=== PATIENT | male | born 1980 | race Caucasian/White ===

== ENCOUNTER 2025-02-15 10:41 | Emergency (ER) | payer MEDICARE, MEDICAID, SELFPAY ==
[2025-02-15 10:48] VITALS: BP 171/114; PULSE 83; RESP 16; TEMP 36.6; O2SAT 98
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
[2025-02-15] MEDS: CEPHALEXIN 500 MG CAPSULE PO (11:32)
[2025-02-15 11:54] VITALS: BP 136/88; PULSE 82; RESP 16; TEMP 36.6; O2SAT 98
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
--- OUTSIDE RECORDS SUMMARY | 2025-02-15 16:20 | XMS_ITS ---
Author Name Auto Generated, Auto Generated Organization [facility] Address [address] [place] [address] Phone [phone] Functional Status No Results Mental Status No Results Allergies and Intolerances No Known Allergies Problems Active Concerns * Moderate recurrent major depression* Code: [id number] * Start Date: MonApr 25 08:00:00 EDT 2016 * End Date: * Text: * FOREST (generalized anxiety disorder)* Code: [id number] * Start Date: MonApr 25 08:00:00 EDT 2016 * End Date: * Text: * Insomnia* Code: [id number] * Start Date: MonApr 25 08:00:00 EDT 2016 * End Date: * Text: * Cannabis abuse* Code: [id number] * Start Date: MonApr 25 08:00:00 EDT 2016 * End Date: * Text: * Nicotine dependence* Code: [id number] * Start Date: MonApr 25 08:00:00 EDT 2017 * End Date: * Text: Reason for Referral Past Medical History
--- OUTSIDE RECORDS SUMMARY | 2025-02-15 16:20 | XMS_ITS | Data Portability ---
Author Organization [facility] [place], Main Office Address [address] [place] [address] Care Team Providers Care Cutting And Boning Supervisor Name Role Phone HANNAH SHIN Primary Care Provider HANNAH SHIN Referring Provider [phone] CAROLYNE CHAKRABORTY Supervisor [employer] SIIS LOPEZ Electronic System Engineer SEKOU KEITH Dog Warden Assessment Encounter Date Assessment Date Assessment LastModified by Organization Details LastModified Time 09/17/2024 09/17/2024 12/06/2022: AST 71 MCV 100.4 VIT D 24.3L 01/04/2023: Hepatitis panel: Neg 04/28/2023: TSH/FT4/Lipids/C MP/CBC: WNL 10/27/2023: VIT D 27.8 TG 200 MCV 100.00 Not available 09/17/2024 14:38:42 10/29/2024 10/29/2024 This note is dictated and transcribed by [employer]. Vat Tender variances may occur. Despite proofreading, typographical errors may occur. Occasional wrong-word or 'vuuho-u-wktg' substitutions may have occurred due to the inherent limitations of voice recording. Read the chart carefully and recognize, using context, where substitutions have occurred. Not available 10/30/2024 11:20:41 11/12/2024 11/12/2024 This note is dictated and transcribed by [employer]. Vat Tender variances may occur. Despite proofreading, typographical errors may occur. Occasional wrong-word or 'qgvoa-y-loji' substitutions may have occurred due to the inherent limitations of voice recording. Read the chart carefully and recognize, using context, where substitutions have occurred. Not available 11/12/2024 15:15:38 12/24/2024 12/24/2024 12/06/2022: AST 71 MCV 100.4 VIT D 24.3L 01/04/2023: Hepatitis panel: Neg 04/28/2023: TSH/FT4/Lipids/C MP/CBC: WNL 10/27/2023: VIT D 27.8 TG 200 MCV 100.00 10/11/2024: K 5.7 VIT D 19.2 Not available 12/24/2024 14:30:33 01/07/2025 01/07/2025 This note is dictated and transcribed by [employer]. Vat Tender variances may occur. Despite proofreading, typographical errors may occur. Occasional wrong-word or 'nsoms-l-jyjk' substitutions may have occurred due to the inherent limitations of voice recording. Read the chart carefully and recognize, using context, where substitutions have occurred. Not available 01/07/2025 15:32:19 Plan of Treatment Reminders Order Date Submit Date Provider Last Modified By Organization Details Last Modified Time Details Appointments Any 15 2024 01:45P M Hannah verde MD Not available Not available Not available Establish ed Patient 15 2024 02:00P M Sekou Keith DPM Not available Not available Not available Follow Up 2024 01:00P Francisco Lopez MD Not available Not available Not available Lab vitamin D, 25-hydrox y, total, serum [email or web address] (Lab), [address] [place], [address], 12/24/2024 14:42:19 lipid panel, serum 2024 025 [email or web address] [facility] (Lab), [address] [place], [address], 12/24/2024 14:42:20 CBC w/ auto diff [address] (Lab), [address] [place], [address], 12/24/2024 14:42:20 CMP, serum or plasma [address] (Lab), [address] [place], [address], 12/24/2024 14:42:20 TSH, serum or plasma [address] (Lab), [address] [place], [address], 12/24/2024 14:42:21 lipid panel, serum 2023 024 [facility] (Lab), [address] [place], [address], 10/12/2024 11:05:16 CBC w/ auto diff 2023 024 [facility] (Lab), [address] [place], [address], 10/12/2024 11:05:16 CMP, serum or plasma 2023 024 [facility] (Lab), [address] [place], [address], 10/12/2024 11:05:16 TSH, serum or plasma 2023 024 [facility] (Lab), [address] [place], [address], 10/12/2024 11:07:56 vitamin D, 25-hydrox y, total, serum 2023 024 [facility] (Lab), [address] [place], [address], 10/12/2024 11:05:16 Referral orthopedi c surgeon referral - Please call patient to schedule an appointme nt. Thank you. 2024 025 [email or web address] aJcob Villa MD, [address] [facility], [place], [address], 12/24/2024 15:49:04 cardiolog ist referral - Please call patient to schedule an appointme nt. Thank you. 2024 025 [email or web address] [place], [address], [address], [place], [address], 01/21/2025 08:54:44 general surgeon referral - Please call patient to schedule an appointme nt. Thank you. 2024 025 YVON Ojeda MD, [address] [facility], [address], [place], [address], 12/25/2024 16:21:38 podiatris t referral 2023 024 [email or web address] Sekou CHAKRABORTYM, [address] [facility], [address], [place], [address], 09/17/2024 20:26:19 orthopedi c surgeon referral - Please call patient to schedule. 2023 024 [email or web address] Jacob Villa MD, [address] [facility], [place], [address], 01/09/2025 08:13:31 cardiolog ist referral 2023 024 [place], [address] , [address], [place], [address], 09/17/2024 20:26:19 general surgeon referral - Please call patient to schedule. 2023 024 [email or web address] Stoney Ojeda MD, [address] [facility], [address], [place], [address], 01/09/2025 08:13:31 Procedures colonosco py screening (PROC) - Please call patient to schedule an appointme nt. Thank you. 2024 025 [facility], [address], [id number], [place], [address], 12/24/2024 16:19:26 colonosco py screening (PROC) - Please call patient to schedule. [address] [facility], [address], [id number], [place], [address], 12/19/2024 09:46:12 Surgeries None recorded. Imaging None recorded. Medication Orders None recorded. Patient TargetsNo targets recorded. Patient InstructionsNo instructions recorded. Reason for Referral Supervisor Metal Cans Referral for He art murmur Referring Physician: Hannah Shin Internal Medicine, Encounter Date: 09/17/2024 Dog Warden Referral for Righ t foot drop Referring Physician: Hannah Shin Internal Medicine, Encounter Date: 09/17/2024 Orthopedic Surgeon Referral for Pain of left hip joint Please call patient to schedule. Referring Physician: Nahomy Galloway Medicine, Encounter Date: 09/17/2024 General Surgeon Referral for Skin lesion Please call patient to schedule. Referring Physician: Hannah Shin Internal Medicine, Encounter Date: 09/17/2024 Supervisor Metal Cans Referral for He art murmur Please call patient to schedule an appointment. Thank you. Referring Physician: Nahomy Galloway Medicine, Encounter Date: 12/24/2024 Orthopedic Surgeon Referral for Pain of left hip joint Please call patient to schedule an appointment. Thank you. Referring Physician: Nahomy Galloway Medicine, Encounter Date: 12/24/2024 General Surgeon Referral for Skin lesion Please call patient to schedule an appointment. Thank you. Referring Physician: Hannah Shin, Internal Medicine, Encounter Date: 12/24/2024 Problems Name Problem SNOMED Code Status Onset Date Resolution Date Notes Provider Name and Address Organization Details Recorded Time Acquired unequal limb length 0699693137889 00 Active 2018 Not Available [facility] 4 02:00:01 Vitamin D deficiency 81392958 Active 2021 Not Available [facility] 4 02:00:01 Depressive disorder 89707020 Active Not Available [facility] 4 02:00:01 Hypothyroi dism 18297770 Active 2021 Not Available [facility] 4 02:00:01 Closed fracture of base of fifth metatarsal bone 740100037 Active 2021 Not Available [facility] 4 02:00:01 Tinea pedis 7461817 Active 2020 Not Available [facility] 4 02:00:01 Right foot drop 9530173828556 06 Active 2022 Not Available [facility] 4 02:00:01 Smoker 15588200 Active 2022 Not Available [facility] 4 02:00:01 Hammer toe 332143041 Active 2022 Not Available [facility] 4 02:00:01 Deviated nasal septum 192386414 Active 2023 Not Available [facility] 4 02:00:01 Liver enzymes level above reference range 976747201 Active 2023 Not Available [facility] 4 02:00:01 Hypertrigl yceridemia 579891577 Active 2023 Not Available [facility] 4 02:00:01 Macrocytos is 152350635 Active 2023 Not Available [facility] 4 02:00:01 Mild chronic obstructiv e pulmonary disease 035672245 Active 2023 Sisi Lopez MD [address] [place] [address], [facility] [address], [place], [address] , [facility] 4 13:11:58 Hyperlipid emia 52970856 Active 2023 Hannah duran MD [address], [address], [place], [address] , [facility] 4 18:28:27 Chronic pain 50792557 Active 2023 Hannah duran MD [address], [place], [address] , [facility] 4 18:28:27 Dyspnea on exertion 93702138 Active 2023 Hannah duran MD [address], [place], [address] , [facility] 4 18:28:27 Laceration of left foot 5634892371149 9106 Active 2023 Hannah duran MD [address], [place], [address] , [facility] 4 18:28:27 Pain of left hip joint 5038249585781 00 Active 2023 Hannah duran MD [address], [place], [address] , [facility] 4 18:28:27 Heart murmur 42343617 Active 2023 Hannah duran MD [address], [place], [address] , [facility] 4 18:28:27 Skin lesion 89406016 Active 2023 Hannah duran MD [address], [place], [address] , [facility] 4 18:28:27 Foot callus 672819761 Active 2023 Sekou Keith DPM [address], [address], [place], [address] , [facility] [employer] [facility] [employer] [facility] 4 15:35:22 History of amputation of lesser toe 183137367 Active 2023 Sekou Keith DPM [address], [place], [address] , [facility] [employer] [facility] [employer] [facility] 4 15:35:47 History of amputation of hallux 889391948 Active 2023 Sekou Keith DPM [address], [place], [address] , [employer] [employer] [facility] 4 15:35:48 Subluxatio n of toe joint 579856721 Active 2023 Sekou Keith DPM [address], [address], [place], [address] , [facility] [employer] [facility] 4 15:36:19 Hammer toe 465249607 Active 2023 Sekou Keith DPM [address], [place], [address] , [facility] [employer] [facility] 4 15:36:29 Dystrophia unguium 16654124 Active 2023 Sekou Keith DPM [address], [place], [address] , [facility] [employer] [facility] 4 15:37:02 Eruption 597949896 Active 2023 Hannah duran MD [address], [place], [address] , [facility] [employer] [facility] 4 15:20:39 Hammer toe 458004632 Active 2024 Sekou Keith DPM [address], [place], [address] , [facility] [employer] [facility] [employer] [facility] 5 11:21:33 Ulcer of right foot due to type 2 diabetes mellitus 6898835285469 9102 Active 2024 Sekou Keith DPM [address], [place], [address] , [facility] 5 11:26:51 Pain of toe of left foot 7350533153635 08 Active 2024 Sekou Keith DPM [address], [place], [address] , [facility] 5 15:15:02 Leg length inequality 80075524 Active 2024 Sekou Keith DPM [address], [place], [address] , [facility] 5 15:15:45 Hyperkalem ia 18876579 Active 2024 Hannah duran MD [address], [place], [address] , [facility] 14:41:10 Notes:Medical History: Depre ssion IgE 6 IU/mL Eosinophils 180/uL AAT PiMS 154 mg% Nicotine use Mild COPD Obesity Hypothyroidism Hyperlipidemia Hypertension EF 60% Cholelithiasis Vit D deficiency Right fibular/tibial fractures Right foot drop/neuropathy Tinea pedis Procedure History: 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 Procedures Surgical History Date Name Laterality Status Provider Name and Address Organization Details Recorded Time 01/08/20 25 Nail Debridement completed Sekou Keith DPM [address], [place], [address], [facility] 01/07/2025 15:31:27 01/08/20 25 Callus Debridement, One completed Sekou Keith DPM [address], [place], [address], [employer] 01/07/2025 15:30:58 11/12/19 25 Nail Debridement completed Sekou Keith DPM [address], [place], [address], [facility] [employer] [facility] 11/12/2024 16:15:59 11/12/19 25 Callus Debridement, One completed Sekou Keith DPM [address], [place], [address], [facility] [employer] [facility] [facility] 11/12/2024 15:14:22 10/29/19 25 Nail Debridement completed Sekou Keith DPM [address], [place], [address], [facility] [employer] [facility] [employer] [facility] 10/30/2024 11:22:53 10/29/19 25 Wound Care-Podiatry completed Sekou Keith DPM [address], [place], [address], [facility] [employer] [facility] [employer] 10/30/2024 11:24:58 06/25/20 24 Nail Debridement completed Sekou Keith DPM [address], [place], [address], [facility] [employer] [facility] [employer] 06/25/2024 15:34:31 02/27/20 24 Medicare Wellness CPT Code, subsequent completed Billy Woods LPN [place] [employer] [facility] [employer] 02/27/2024 17:46:22 02/14/20 24 Wound Care-Podiatry completed Marlys Umanzor RN [facility] [employer] [facility] [employer] 02/14/2024 12:13:01 01/31/20 24 Wound Care-Podiatry completed Sekou Keith DPM [address], [place], [address], [facility] [employer] [facility] [employer] 01/31/2024 17:01:17 01/10/20 24 Wound Care-Podiatry completed Sekou Keith DPM [address], [place], [address], [facility] [employer] [facility] [facility] 01/10/2024 12:15:44 12/27/19 24 Wound Care-Podiatry completed Sekou Keith DPM [address], [place], [address], [employer] [facility] [employer] 12/28/2023 13:56:09 12/13/19 24 Wound Care-Podiatry completed Sekou Keith DPM [address], [place], [address], [employer] [facility] [employer] 12/13/2023 14:39:03 11/29/19 24 Wound Care-Podiatry completed Sekou Keith DPM [address], [place], [address], [employer] [facility] [employer] 11/29/2023 13:30:25 11/15/19 24 Wound Care-Podiatry completed Sekou Keith DPM [address], [place], [address], [employer] [facility] [employer] 11/15/2023 13:38:04 11/01/19 24 Wound Care-Podiatry completed Sekou Keith DPM [address], [place], [address], [employer] [facility] [employer] 11/01/2023 13:59:08 07/25/20 23 Callus Debridement 2-4 completed Sekou Keith DPM [address], [place], [address], [employer] [facility] [employer] 07/26/2023 13:54:48 03/02/20 23 Callus Debridement 2-4 completed Sekou Keith DPM [address], [place], [address], [employer] [facility] [employer] 03/02/2023 17:00:49 02/17/20 23 Wound Care-Podiatry completed Sekou Keith DPM [address], [place], [address], [employer] [facility] [employer] 02/16/2023 16:55:56 02/17/20 23 Callus Debridement 2-4 completed Sekou Keith DPM [address], [place], [address], [employer] [facility] [employer] 02/16/2023 16:54:24 04/15/20 22 procedure on lip completed Not Available [facility] 12/14/2022 02:44:04 Imaging Results None recorded. Procedure Notes None recorded. Medical Equipment None Reported. Allergies Allergen ID Allergen Name Allergen Category Reaction Reaction Severity Criticality Documentation Date Start Date Code Code System Note Provider Name and Address Organization Details Recorded Time 4893 clindamyc in Not available Not available Not available Not available 12/14/2022 2582 RxNorm Not Available [facility] 3 03:04:12 4894 Cipro medicatio n Not available Not available Not available 12/14/2022 38598 3 RxNorm Not Available [facility] 3 03:04:12 Medications Name Sig Start Date Stop Date Status Note LastModified by Organization Details LastModified Time losartan 50 mg tablet TAKE 1 TABLET BY MOUTH EVERY DAY 09/17 completed Not Available Not Available Not Available cyclobenz aprine 10 mg tablet Take 1 tablet every day by oral route as needed for 30 days. active Not Available Not Available No t Available amoxicill in 500 mg capsule TAKE 1 CAPSULE BY MOUTH TWICE DAILY BEFORE MEALS 12/07 completed Not Available Not Available Not Available atorvasta tin 40 mg tablet TAKE 1 TABLET BY MOUTH EVERY DAY active Not Available Not Available No t Available ammonium lactate 12 % lotion apply to feet daily active Not Available Not Available No t Available azithromy alex 250 mg tablet TAKE 2 TABLETS (500 MG) BY ORAL ROUTE ONCE DAILY FOR 1 DAY THEN 1 TABLET (250 MG) BY ORAL ROUTE ONCE DAILY FOR 4 DAYS 10/24 completed Not Available Not Available Not Available nicotine (polacril ex) 2 mg gum Chew 1 piece of gum 4 times a day by oral route for 30 days. active Not Available Not Available No t Available metoprolo l succinate ER 50 mg tablet,ex tended release 24 hr TAKE 1 TABLET BY MOUTH DAILY active Not Available Not Available No t Available cephalexi n 250 mg capsule TAKE 1 CAPSULE BY MOUTH FOUR TIMES DAILY FOR 7 DAYS 04/19 completed Not Available Not Available Not Available hydrocodo ne 5 mg-acetam inophen 325 mg tablet TAKE 1 TABLET BY MOUTH EVERY 8 HOURS NEEDED FOR PAIN 12/07 completed Not Available Not Available Not Available ceftriaxo ne 250 mg solution for injection Take 250 mg by injectio n route. 07/18 completed Not Available Not Available Not Available thiamine HCl (vitamin B1) 100 mg tablet Take 1 tablet every day by oral route for 90 days. 05/01 completed Not Available Not Available Not Available aspirin 81 mg tablet,de layed release Take 1 tablet every day by oral route. 06/04 completed Not Available Not Available Not Available tramadol 50 mg tablet TAKE 1 TABLET BY MOUTH EVERY 8 HOURS NEEDED 12/13 completed Not Available Not Available Not Available amoxicill in 500 mg tablet TAKE 1 TABLET BY MOUTH EVERY 8 HOURS UNTIL ALL GONE 09/17 completed Not Available Not Available Not Available meloxicam 7.5 mg tablet Take 1 tablet twice a day by oral route as needed. active Not Available Not Available No t Available terbinafi ne HCl 250 mg tablet TK 1 T PO D FOR 2 WEEKS active Not Available Not Available No t Available hydrocodo ne 7.5 mg-acetam inophen 325 mg tablet TAKE 1 TABLET BY MOUTH EVERY 4 HOURS NEEDED FOR PAIN 02/03 completed Not Available Not Available Not Available econazole nitrate 1 % topical cream APPLY TO AFFECTED AREAS OF HANDS AND FEET BID FOR 4 WEEKS active Not Available Not Available No t Available cephalexi n 500 mg capsule Take 1 capsule every 6 hours by oral route as directed for 7 days. 01/09 completed Not Available Not Available Not Available triamcino lone acetonide 0.1 % topical ointment APPLY A THIN LAYER TO THE AFFECTED AREA(S) BY TOPICAL ROUTE 2 TIMES PER DAY active Not Available Not Available No t Available losartan 25 mg tablet TAKE 1 TABLET BY MOUTH EVERY DAY active Not Available Not Available No t Available diclofena c sodium 75 mg tablet,de layed release TAKE 1 TABLET BY MOUTH TWICE DAILY 06/04 completed Not Available Not Available Not Available folic acid 1 mg tablet Take 1 tablet every day by oral route for 90 days. 05/01 completed Not Available Not Available Not Available mupirocin 2 % topical ointment apply to foot wound daily active Not Available Not Available No t Available metoprolo l succinate ER 25 mg tablet,ex tended release 24 hr TAKE 1 TABLET BY MOUTH EVERY DAY 02/26 completed Not Available Not Available Not Available ergocalci ferol (vitamin D2) 1,250 mcg (50,000 unit) capsule TAKE 1 CAPSULE BY MOUTH WEEKLY 04/24 completed Not Available Not Available Not Available albuterol sulfate HFA 90 mcg/actua tion aerosol inhaler Inhale 1 puff every 4 hours by inhalati on route as needed. 06/04 completed Not Available Not Available Not Available ketoconaz ole 2 % topical cream apply to the bottom of feet daily in the morning active Not Available Not Available No t Available doxycycli ne hyclate 100 mg tablet TAKE 1 TABLET BY MOUTH TWICE DAILY 06/10 completed Not Available Not Available Not Available naproxen 500 mg tablet TAKE 1 TABLET BY MOUTH TWICE DAILY WITH FOOD 07/26 completed Not Available Not Available Not Available amoxicill in 875 mg-potass ium clavulana te 125 mg tablet Take 1 tablet every 12 hours by oral route for 7 days. 02/27 completed Not Available Not Available Not Available azithromy alex 1 gram oral packet Take 1 packet by oral route for 1 day. active Not Available Not Available No t Available nicotine 21mg/24hr -14mg/24h r-7mg/24h r daily transderm patches,s equentl Use the patches as directed by the pharmacy 06/03 completed Not Available Not Available Not Available rosuvasta tin 40 mg tablet TAKE 1 TABLET BY MOUTH EVERY DAY active Not Available Not Available No t Available acetamino phen (bulk) PT stated he takes 1800mg PRN 07/26 completed Only really takes if the cycloben zaprine doesn't help Not Available Not Available Not Available icosapent ethyl 1 gram capsule Take 2 capsules twice a day by oral route for 30 days. 11/01 completed Not Available Not Available Not Available Vitals Date Recorded Body height Body mass index (BMI) Body weight Body temperature Heart rate Oxygen saturation Oxygen saturation in Arterial blood by Pulse oximetry Pain severity - 0-10 verbal numeric rating [Score] - Reported Systolic blood pressure Diastolic blood pressure Provider Name and Address Organization Details Last Updated DateTime 4 170.18 cm 32.6 kg/m2 95883.2 1 g 97.5 [degF] 62 /min 97 % 97 % 2 132 mm[Hg] 82 mm[Hg] Haylie Paul [place] [facility] 4 14:34:20 Date Recorded Body height Body mass index (BMI) Body weight Heart rate Respiratory rate Oxygen saturation Oxygen saturation in Arterial blood by Pulse oximetry Systolic blood pressure Diastolic blood pressure Provider Name and Address Organization Details Last Updated DateTime 5 170.18 cm 32.6 kg/m2 57816.2 1 g 73 /min 14 /min 99 % 99 % 169 mm[Hg] 108 mm[Hg] Dolores Vega [facility] [employer] [facility] 5 15:00:35 Date Recorded Body height Body mass index (BMI) Body weight Heart rate Respiratory rate Oxygen saturation Oxygen saturation in Arterial blood by Pulse oximetry Systolic blood pressure Diastolic blood pressure Provider Name and Address Organization Details Last Updated DateTime 5 170.18 cm 32.6 kg/m2 22527.2 1 g 71 /min 14 /min 99 % 99 % 137 mm[Hg] 81 mm[Hg] Dolores Vega [facility] [employer] [facility] 5 14:51:32 Date Recorded Body height Body mass index (BMI) Body weight Body temperature Heart rate Systolic blood pressure Diastolic blood pressure Provider Name and Address Organization Details Last Updated DateTime 5 170.18 cm 31.8 kg/m2 74498.2 5 g 97.6 [degF] 72 /min 122 mm[Hg] 80 mm[Hg] GREGOR Myrick [facility] [facility] 5 14:16:55 Date Recorded Body height Respiratory rate Body temperature Oxygen saturation Oxygen saturation in Arterial blood by Pulse oximetry Heart rate Body mass index (BMI) Body weight Systolic blood pressure Diastolic blood pressure Provider Name and Address Organization Details Last Updated DateTime 5 170.18 cm 16 /min 98.6 [degF] 97 % 97 % 86 /min 31.8 kg/m2 44837.2 5 g 108 mm[Hg] 69 mm[Hg] Briana Grimes [facility] 5 15:04:33 Social History Question Answer Notes LastModified by Organization Details LastModified Time Tobacco Smoking Status Current Every Day Smoker Not Available [facility] 12/14/2022 02:31:05 Do You Have An Advance Directive? No MIGRATION.0301 [id number] Information not available 12/14/2022 What Is Your Level Of Alcohol Consumption? Occasional MIGRATION.0301 123317 Information not available 12/14/2022 Do You Wear A Helmet When Biking? No MIGRATION.0301 998737 Information not available 12/14/2022 What Is Your Level Of Caffeine Consumption? Heavy MIGRATION.0301 404092 Information not available 12/14/2022 In The 14 Days Before Symptom Onset, Have You Had Close Contact With A Laboratory-confi rmed COVID-19 While That Case Was Ill? No MIGRATION.0301 871585 Information not available 12/14/2022 In The 14 Days Before Symptom Onset, Have You Had Close Contact With A Person Who Is Under Investigation For COVID-19 While That Person Was Ill? No MIGRATION.0301 405675 Information not available 12/14/2022 Are You Currently Employed? No Disabled [email or web address] Information not available 02/27/2024 What Type Of Diet Are You Following? REGULAR MIGRATION.030 409459 Information not available 12/14/2022 Which Illicit Or Recreational Drugs Have You Used? Recreational Marijuana MIGRATION.030 841174 Information not available 12/14/2022 Do You Or Have You Ever Used E-cigarettes Or Vape? Never Used Electronic Cigarettes MIGRATION.030 584314 Information not available 12/14/2022 What Is The Highest Grade Or Level Of School You Have Completed Or The Highest Degree You Have Received? QR81302-5 MIGRATION.030 299363 Information not available 12/14/2022 Do You Have An Electrostatic Air Filter? No Information not available 05/03/2023 Have There Been Any Changes To Your Family Or Social Situation? No MIGRATION.0301 656433 Information not available 12/14/2022 What Is The Fluoride Status Of Your Home? Unknown MIGRATION.0301 054638 Information not available 12/14/2022 Do You Have A Humidifier? No Information not available 05/03/2023 Do You Use Insect Repellent Routinely? No MIGRATION.0301 929719 Information not available 12/14/2022 Where Do You Live? SingleLevelHouse MIGRATION.0301 928724 Information not available 12/14/2022 Presence Of Domestic Violence No [email or web address] Information not available 02/27/2024 Are You Able To Care For Yourself? Yes [email or web address] Information not available 02/27/2024 Are You Blind Or Do Yo Have Difficulty Seeing? No [email or web address] Information not available 02/27/2024 Are You Deaf Or Do You Have Serious Difficulty Hearing? No [email or web address] Information not available 02/27/2024 General Stress Level? Low [email or web address] Information not available 02/27/2024 Live Alone Of With Others? With Others Information not available 02/27/2024 Do You Have A Medical Power Of Environmental Professional? No MIGRATION.0301 598964 Information not available 12/14/2022 Do You Have Moisture Problems In Your Home? No Information not available 05/03/2023 What Was The Date Of Your Most Recent Tobacco Screening? 12/24/2024 Information not available 12/24/2024 What Is Your Current Pack Years? [email or web address] Information not available 02/27/2024 Have You Ever Been Counseled For Unhealthy Alcohol Use? No MIGRATION.0301 519099 Information not available 12/14/2022 Do You Have Any Pets? Yes Big Dog [email or web address] Information not available 02/27/2024 What Is Your Relationship Status? MIGRATION.0301 790323 Information not available 12/14/2022 Do You Use Your Seat Belt Or Car Seat Routinely? Yes MIGRATION.0301 926521 Information not available 12/14/2022 Do You Have Smoke And Carbon Monoxide Detectors In Your Home? Yes MIGRATION.0301 445528 Information not available 12/14/2022 At What Age Did You Start Smoking Tobacco? 11 MIGRATION.0301 113466 Information not available 12/14/2022 Are You Passively Exposed To Smoke? Yes MIGRATION.0301 946648 Information not available 12/14/2022 Do You Or Have You Ever Used Smokeless Tobacco? Never Used Smokeless Tobacco MIGRATION.0301 650840 Information not available 12/14/2022 Are There Any Smokers In Your House? Yes MIGRATION.0301 984289 Information not available 12/14/2022 How Much Tobacco Do You Smoke? 1 PPD Information not available 02/27/2024 What Types Of Sporting Activities Do You Participate In? None MIGRATION.0301 906018 Information not available 12/14/2022 Do You Feel Stressed (tense, Restless, Nervous, Or Anxious, Or Unable To Sleep At Night)? [id number] Information not available 02/27/2024 Do You Use Any Illicit Or Recreational Drugs? Yes MIGRATION.0301 127448 Information not available 12/14/2022 Do You Use Sunscreen Routinely? No MIGRATION.0301 038843 Information not available 12/14/2022 Has Tobacco Cessation Counseling Been Provided? Yes Information not available 02/27/2024 On What Date Was Tobacco Cessation Counseling Provided? 02/27/2024 [email or web address] Information not available 02/27/2024 Have You Recently Traveled Abroad? No MIGRATION.0301 779495 Information not available 12/14/2022 Have You Used IV Drugs? No MIGRATION.0301 373441 Information not available 12/14/2022 Do You Have Any Dietary Restrictions? No MIGRATION.0301 430536 Information not available 12/14/2022 Do You Or Have You Ever Used Any Other Forms Of Tobacco Or Nicotine? No MIGRATION.0301 566592 Information not available 12/14/2022 How Many Days In The Past Year Have You Consumed 5 Or More Drinks? 0 [email or web address] Information not available 02/27/2024 Sex: Male Functional Status Question Answer Note LastModified by Organizat ion Details LastModified Time What is your exercise level? Occasional MIGRATION.[id number] 26 Information not available 12/14/2022 Mental Status None recorded. Family History Relationship Description Onset Age of this Age Resolved Age Notes LastModified by Organization Details LastModified Time Mother Hypertensive disorder MIGRATION.178 [id number] Not available 12/14/2022 02:44:08 Mother Diabetes mellitus MIGRATION.368 [id number] Not available 12/14/2022 02:44:08 Maternal Grandfather Heart disease [email or web address] Not available 2022 14:22:17 Maternal Grandfather Obesity [email or web address] Not available 2022 14:22:36 Maternal Aunt Obesity [email or web address] Not avail able 05/03/2023 14:22:57 Mother Obesity [email or web address] Not available 14:23:03 Medical History Condition Response NERVE DISEASE N BLINDNESS N RHEUMATIC FEVER N KIDNEY STONES N BLADDER PROBLEMS N MRSA N OTHER # 1 N POLIO N LUNG DISEASE/DISORDER N RADIATION / CHEMOTHERAPY N COPD N Other # 2 N BLOOD DISEASES N SURGERY N EAR OR HEARING PROBLEMS N MUMPS N DEPRESSION (INCLUDING POST ) Y BOWEL PROBLEMS N STROKE/TIA N ULCERS N BENIGN PROSTATIC HYPERPLASIA N MEASLES N MYOCARDIAL INFARCTION N OBESITY N GERD/NAUSEA N ANEURYSM N URINARY/BLADDER/KIDNEY PROBLEMS N CORONARY ARTERY DISEASE (CAD) N ADDICTION CONCERNS N Impotence N ENDOMETRIOSIS N USE OF BLOOD THINNERS N SKIN PROBLEMS Y GASTROINTESTINAL DISORDER N PERIPHERAL VASCULAR DISEASE N MUSCLE,JOINT OR BONE PROBLEMS N GASTROINTESTINAL BLEEDING N BLOOD CLOTS N ASTHMA N CATARACTS N ERECTILE DYSFUNCTION N VARICOSITIES N GI PROBLEMS N Low Testosterone N INFERTILITY N AIDS/HIV N CHEMOTHERAPY / RADIATION N LIVER DISEASE N MALE HYPOGONADISM N HYPERTENSION Y Deficiency N ANXIETY DISORDER Y BLOOD TRANSFUSION N ANEMIA/BLOOD DISORDER N CHRONIC EAR INFECTIONS N BRONCHITIS N TUBERCULOSIS N GLAUCOMA N FOOT PROBLEM N DIVERTICULITIS N SLEEP APNEA N CHICKENPOX N INFECTIOUS DISEASE N PROSTATE N HEART ARRHYTHMIA N INSOMNIA N HIGH CHOLESTEROL / HYPERLIPIDEMIA Y HYPERTHYROIDISM N EYE PROBLEMS N NEUROLOGICAL PROBLEMS Y EDEMA N CHRONIC PAIN SYNDROME Y HYPOTHYROIDISM N CONSTIPATION N CAROTID BLOCKAGE N BACK / NECK PROBLEMS N ATHEROSCLEROSIS N BREAST PROBLEMS N DIALYSIS N ECZEMA N HISTORY WITH COMPLICATIONS WITH ANESTHES IA ? N OSTEOPOROSIS N ARTHRITIS N APPENDICITIS N DIABETES, TYPE N BAD TEETH N ENT Y HEARTBURN / REFLUX N AUTISM SPECTRUM DISORDER (ASD) N HEPATITIS / LIVER DISEASE N GOUT N SLEEP DISORDER N ALZHEIMER'S DISEASE N Brain Problems N HERPES N DEMENTIA N SEIZURES/EPILEPSY N HEADACHES/MIGRAINES N VASCULAR DISEASE N PACEMAKER N Blood Disorder N DIZZINESS N HEAD TRAUMA OR INJURY N KIDNEY DISEASE N HEART DISEASE/HEART PROBLEMS N MULTIPLE SCLEROSIS N CARDIAC ARRHYTHMIA N CANCER: SPECIFY Y Gall Stones N ATRIAL FIBRILLATION N PULMONARY EMBOLISM N AUTOIMMUNE DISEASE N Immunizations Vaccine Type Date Status Note Provider Nam e and Address Organization Details Recorded Time Td (adult), 5 Lf tetanus toxoid, preservative free, adsorbed 4 completed GREGOR Myrick, [place] - [facility] 10/24/2023 15:36:56 Past Encounters Encounter ID Performer Location Encounter Start Date Encounter Closed Date Diagnosis/Indication Diagnosis SNOMED-CT Code Diagnosis ICD10 Code Diagnosis Note [id number] [facility] _ATHENA_M IGRATION_ DEFAULT_1 _1 , 12/25/2020 00:00:00 12/29/2020 08:48:53 [id number] [facility] [address] [place] [address] 12/29/2020 00:00:00 12/29/2020 16:04:52 [id number] [facility] [address] [place] [address] 01/05/2021 00:00:00 01/07/2021 13:24:14 [id number] [facility] [address] [place] [address] 01/07/2021 00:00:00 01/11/2021 15:54:54 [id number] [facility] [address] [place] [address] 01/12/2021 00:00:00 01/13/2021 10:10:52 [id number] [facility] [address] [place] [address] 01/19/2021 00:00:00 01/22/2021 09:52:31 [id number] [facility] [address] [place] [address] 01/26/2021 00:00:00 01/27/2021 13:27:40 [id number] [facility] [address] [place] [address] 02/02/2021 00:00:00 02/03/2021 11:14:06 [id number] [facility] [address] [place] [address] 02/09/2021 00:00:00 02/11/2021 09:08:28 [id number] [facility] [address] [place] [address] 02/16/2021 00:00:00 02/16/2021 14:29:46 [id number] [facility] [address] [place] [address] 02/19/2021 00:00:00 02/19/2021 14:26:30 [id number] [facility] [address] [place] [address] 03/01/2021 00:00:00 03/08/2021 08:57:51 [id number] [facility] [address] [place] [address] 03/09/2021 00:00:00 03/10/2021 11:12:18 [id number] [facility] [address] [place] [address] 03/16/2021 00:00:00 03/16/2021 12:03:11 [id number] [facility] [address] [place] [address] 03/23/2021 00:00:00 03/23/2021 15:41:12 [id number] [facility] [address] [place] [address] 04/27/2021 00:00:00 04/27/2021 14:09:28 [id number] [facility] [address] [place] [address] 05/04/2021 00:00:00 05/10/2021 08:54:36 [id number] [facility] [address] [place] [address] 05/11/2021 00:00:00 05/13/2021 10:44:26 [id number] [facility] [address] [place] [address] 05/18/2021 00:00:00 05/20/2021 11:25:41 [id number] [facility] [address] [place] [address] 05/25/2021 00:00:00 05/31/2021 09:08:00 [id number] [facility] [address] [place] [address] 06/01/2021 00:00:00 06/02/2021 13:30:38 [id number] Hannah duran MD [facility] [address] [facility] [address] [place] [address] 06/10/2021 00:00:00 06/14/2021 13:12:22 [id number] [facility] [address] [place] [address] 07/06/2021 00:00:00 07/06/2021 17:48:08 [id number] [facility] [address] [place] [address] 07/13/2021 00:00:00 07/14/2021 16:21:26 [id number] [facility] _ATHENA_M IGRATION_ DEFAULT_1 _1 , 08/13/2021 00:00:00 08/13/2021 13:59:33 [id number] [facility] _ATHENA_M IGRATION_ DEFAULT_1 _1 , 08/20/2021 00:00:00 08/24/2021 13:21:16 [id number] [facility] _ATHENA_M IGRATION_ DEFAULT_1 _1 , 09/17/2021 00:00:00 09/21/2021 13:19:51 [id number] [facility] [address] [place] [address] 11/02/2021 00:00:00 11/02/2021 15:24:56 [id number] [facility] _ATHENA_M IGRATION_ DEFAULT_1 _1 , 11/12/2021 00:00:00 11/14/2021 20:46:50 [id number] Cb Hall MD [facility] ENT [facility] [address] [place] [address] 12/07/2021 00:00:00 12/07/2021 16:14:58 [id number] [facility] _ATHENA_M IGRATION_ DEFAULT_1 _1 , 12/10/2021 00:00:00 12/12/2021 15:35:26 [id number] Hannah duran MD [facility] Med [facility] [address] [facility] [address] [address] 12/14/2021 00:00:00 12/14/2021 17:34:58 [id number] [facility] _ATHENA_M IGRATION_ DEFAULT_1 _1 , 12/24/2021 00:00:00 12/27/2021 10:51:58 [id number] [facility] _ATHENA_M IGRATION_ DEFAULT_1 _1 , 01/07/2022 00:00:00 01/09/2022 15:48:20 [id number] MD LINO AnglinCAMELIA HERNANDEZ [place] [address] [place] [address] 02/03/2022 00:00:00 02/03/2022 14:09:28 [id number] [facility] _ATHENA_M IGRATION_ DEFAULT_1 _1 , 02/04/2022 00:00:00 02/07/2022 10:11:50 [id number] [facility] _ATHENA_M IGRATION_ DEFAULT_1 _1 , 03/04/2022 00:00:00 03/07/2022 10:19:15 [id number] Hannah duran MD [facility] Internal Med [facility] [address] [facility] [address] [place] [address] 03/24/2022 00:00:00 03/24/2022 16:08:37 [id number] [facility] _ATHENA_M IGRATION_ DEFAULT_1 _1 , 04/08/2022 00:00:00 04/12/2022 13:39:23 [id number] MD DONIS AnglinKaren ENT [place] [address] [place] [address] 04/13/2022 00:00:00 04/13/2022 16:06:11 [id number] [facility] _ATHENA_M IGRATION_ DEFAULT_1 _1 , 05/13/2022 00:00:00 05/13/2022 13:38:51 [id number] [facility] _ATHENA_M IGRATION_ DEFAULT_1 _1 , 07/08/2022 00:00:00 07/11/2022 13:08:48 [id number] Hannah duran MD [facility] Internal Med [facility] [address] [facility] [place] [address] 07/26/2022 00:00:00 07/26/2022 15:52:38 [id number] [facility] _ATHENA_M IGRATION_ DEFAULT_1 _1 , 09/16/2022 00:00:00 09/20/2022 10:16:28 [id number] Sekou Keith DPM [facility] [place] [address] [place] [address] 11/17/2022 00:00:00 11/23/2022 09:48:23 [id number] Hannah duran MD [facility] Internal Med [facility] [address] [place] [address] 1 12/13/2022 00:00:00 12/13/2022 16:17:44 [id number] Sekou Keith DPM [facility] [place] [address] [place] [address] 02/16/2023 16:00:36 02/16/2023 17:30:37 Foot pain 31751117 M79.671 calluses debridedFo llow-up in 2 weeks Ulcer of foot 98170178 L 97.511 debrided per noteWound care instructio ns givenFollo w-up in 2 weeksConti nue custom offloading inserts [id number] Sekou Keith DPM [facility] [place] [address] [place] [address] 03/02/2023 16:12:32 03/02/2023 17:12:16 Open wound of foot 517462775 S91.301D M21.41 HealedCont inue diabetic shoes and insertsWil l need new diabetic shoes and insoles in March Foot callus 110334706 L8 4 debrided u5Fceronoq diabetic shoes and insertsFol low-up in 2-3 months for new Rx for diabetic shoes [id number] Hannah duran MD [facility] [address] [facility] [address] [place] [address] 04/25/2023 15:44:58 04/25/2023 16:16:11 Screening - NAD 800238311 Z13.9 C-scope: Get this at age 43 years Get yearly flu shot he has declined this 07/26/2022 UTD on tdap in 12/04Get COVID 19 vaccine done follow CDC guidelines 06/03/2020 : Handicap parking filled out 020: Handicap parking form again filled out as he did not get the plackardTh e form was filled an handed to him personally RTC in 6 monthsDo labsER if worseHe did verbalize his understand ing of the above Hyperlipidemia 01863312 E78.5 On ASAOn crestor 40mg dailyGet labs Vitamin D deficiency 347 42673 E55.9 On Vit d weeklyGet vit d level done Heart murmur 52898006 R0 1.1 ECHO 09/26/2023 : [facility] Dr Dillard s test 09/26/2023 : Dr Chakraborty [facility] Dr Chakraborty 10/11/2022 , advised to stop smoking, f/u in one yearKeep apt with [facility] Right foot drop 24936339 01 89110 M21.371 OV 06/18/19:G et a podiatry referralMa y need an AFO brace OV 07/18/19:N eeds to see podiatry has apt on 08/02/19Do es have sx of spasms, used to be on gabapentin , could not take this as he always 'forgot to take it'Get on flexerill 10mg daily PRN OV 11/19/2019 :Get a referral to podiatry, this was made but not seenRefer againThe difference in height the R and L foot is causing the hip painMay need a new shoe Addendum: 01/05/2020 : 0: Dr Dwyer: R foot wound stable, apply bactroban, f/u in one month OV 02/25/2020 :Seen by Dr Villalpando ants to get more cyclobenza moriah, will renewHas a callus get keflex OV 06/03/2020 ;Seen by Dr Dwyer on 05/29/2020 and next apt 06/19/2020 , this for the wound on the R foot, he does have specialize d boots, and also has an abnormal gait OV 09/29/2020 :Keep apt with Dr Dwyer, he sees him every 3-4 weeks OV 06/10/2021 :Sees Dr Chacko ow has to have R foot surgeryHe is very active, denies any CVS or LEAD HOUSEKEEPER or respirator y symptoms, can easily climb a flight of stairsHe is cleared for this surgical procedure and remains a moderate risk for this procedure OV 12/14/2021 :Dr Dwyer last OV 11/12/2021 , next 01/05/2022 OV 03/24/2022 :Dr Dwyer 04/08/2022 OV 07/26/2022 :Dr Dwyer next 09/16/2022 OV 12/13/2022 :WIll see Dr Keith on 02/16/2023 OV 04/25/2023 :Dr Keith 03/02/2023 , get another apt Smoker 44380107 F17.200 Advised to quit smoking! 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 [place] [address] 05/01/2023 09:23:44 05/01/2023 10:49:50 Pain of left hip joint 6320921344 41632 M25.552 [id number] Sisi Lopez MD [facility] Pulmonolo gy [address] [place] [address] 05/03/2023 13:46:33 05/03/2023 14:50:40 Dyspnea on exertion 72605909 R06.09 R05.3 T78.40XA D89.9 [id number] Sekou Keith DPM [facility] [place] [address] [place] [address] [address] [place] [address] 07/25/2023 17:27:17 07/26/2023 16:58:28 History of partial amputation of right toe 8803872613 3904635 Z89.421 rx custom insoles, todayDue to this patient's diagnosis listed above, they have been prescribed a medical necessary custom orthotics that is fabricated from a model of the patient's foot and ankle to ensure proper function, ambulation and to prevent tissue injury. This condition is lifelong it will not be reversed or resolve over time. The prognosis is good weight-marcy ring in a custom orthotics. A prefabrica philip orthotics is not appropriat e for this condition due to abnormal anatomy. The patient will need this Orthotic for greater than 6 months and will need to control the foot and ankle in all 3 planes of motion, sagittal, axial and coronal. The patient will need this orthotic for greater ambulatory status. Foot callus 886091020 L8 4 Continue custom shoes and insertsFol low-up in 2-3 months for new Rx for diabetic shoes Hammer toe 389480746 M20 .41 offloading to prevent wound [id number] Hannah duran MD [facility] [address] [facility] [address] [place] [address] 10/24/2023 14:56:06 10/24/2023 15:37:25 Screening - NAD 614304286 Z13.9 C-scope: Get this at age 43 years Get yearly flu shot he has declined this 07/26/2022 UTD on tdap in 12/04Get COVID 19 vaccine done follow CDC guidelines 06/03/2020 : Handicap parking filled out 020: Handicap parking form again filled out as he did not get the plackardTh e form was filled an handed to him personally RTC in 6 monthsDo labsER if worseHe did verbalize his understand ing of the above Hyperlipidemia 99158345 E78.5 On ASAOn crestor 40mg dailyGet labs Vitamin D deficiency 347 62521 E55.9 On Vit d weeklyGet vit d level done Heart murmur 28046746 R0 1.1 ECHO 09/26/2023 : HV Dr Dillard s test 09/26/2023 : Dr Chakraborty [facility] Dr Chakraborty 10/11/2022 , advised to stop smoking, f/u in one yearKeep apt with [facility] Dr Chakraborty 10/24/2023 Right foot drop 92563442 01 18137 M21.371 OV 06/18/19:G et a podiatry referralMa y need an AFO brace OV 07/18/19:N eeds to see podiatry has apt on 08/02/19Do es have sx of spasms, used to be on gabapentin , could not take this as he always 'forgot to take it'Get on flexerill 10mg daily PRN OV 11/19/2019 :Get a referral to podiatry, this was made but not seenRefer againThe difference in height the R and L foot is causing the hip painMay need a new shoe Addendum: 01/05/2020 : 0: Dr Dwyer: R foot wound stable, apply bactroban, f/u in one month OV 02/25/2020 :Seen by Dr Villalpando ants to get more cyclobenza moriah, will renewHas a callus get keflex OV 06/03/2020 ;Seen by Dr Dwyer on 05/29/2020 and next apt 06/19/2020 , this for the wound on the R foot, he does have specialize d boots, and also has an abnormal gait OV 09/29/2020 :Keep apt with Dr Dwyer, he sees him every 3-4 weeks OV 06/10/2021 :Sees Dr Chacko ow has to have R foot surgeryHe is very active, denies any CVS or LEAD HOUSEKEEPER or respirator y symptoms, can easily climb a flight of stairsHe is cleared for this surgical procedure and remains a moderate risk for this procedure OV 12/14/2021 :Dr Dwyer last OV 11/12/2021 , next 01/05/2022 OV 03/24/2022 :Dr Dwyer 04/08/2022 OV 07/26/2022 :Dr Dwyer next 09/16/2022 OV 12/13/2022 :WIll see Dr Keith on 02/16/2023 OV 04/25/2023 :Dr Keith 03/02/2023 , get another apt OV 10/24/2023 :Dr Keith 07/25/2023 , next apt 11/01/2023 Smoker 07595555 F17.200 Advised to quit smoking! 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 Advised to wean off and stop all alcohol!, does not want any interventi ons On thiamine and folic acid Pain of le ft hip joint 1397324228 36064 M25.552 S/p slip into his poolGet a referral to Dr Bebo Lagunas 05/01/2023 Dyspnea on exertion 6084 5006 R06.09 Has seen Robina c/o mild wheezing, still smokes, get a referral to Dr Lopez Screening for malignant neoplasm of colon 383242042 Z12.11 Open wound of toe of right foot 3488117295 9264408 S91.104A Will see wound clinic next Monday11/01/2023 , also get Td [id number] Sekou Keith DPM [facility] [address] [place] [address] 11/01/2023 11:11:16 11/01/2023 12:22:36 Fissure in skin 00112295 R23.4 Right foot amp site 2nddebride dOffloadin gSilver nitrate applied todayBetad ine wet-to-dry dressingCo ntinue custom accommodat benito insertsFol low-up 1 week Open wound of toe of right foot 6437925738 4303526 S91.104A 3rd toe rightOfflo ading at all timesWound care dailyBetad ine wet-to-dry dressingsF ollow-up 1 week Hammer toe 294521028 M20 .41 offloading to prevent woundRight 3rd 4th and 5th toesWorse to the 3rd with open woundOfflo adingRecom mend continuing supportive shoe gear and insertsRec ommend 3rd toe amputation [id number] Sekou Keith DPM [facility] [address] [place] [address] 11/15/2023 11:57:07 11/15/2023 12:19:05 Fissure in skin 63084433 R23.4 Right foot amp site 2ndDebride dOffloadin gSilver nitrate applied todayBetad ine wet-to-dry dressingCo ntinue custom accommodat benito insertsFol low-up 1 week Open wound of toe of right foot 3264721108 6993405 S91.104A 3rd toe rightOfflo ading at all timesWound care dailyBetad ine wet-to-dry dressingsF ollow-up 1 week Hammer toe 793750134 M20 .41 offloading to prevent woundRight 3rd 4th and 5th toesWorse to the 3rd with open woundOfflo adingRecom mend continuing supportive shoe gear and insertsRec ommend 3rd toe amputation [id number] Sekou Keith DPM [facility] [address] [place] [address] 11/29/2023 11:59:59 11/29/2023 14:36:39 Fissure in skin 86032929 R23.4 Right foot amp site 2ndDebride dOffloadin gSilver nitrate applied todayBetad ine wet-to-dry dressingCo ntinue custom accommodat benito insertsFol low-up 1 week Open wound of toe of right foot 5392394664 6794394 S91.104A 3rd toe rightOfflo ading at all timesWound care dailyBetad ine wet-to-dry dressingsF ollow-up 1 week Hammer toe 180983431 M20 .41 offloading to prevent woundRight 3rd 4th and 5th toesWorse to the 3rd with open woundOfflo adingRecom mend continuing supportive shoe gear and insertsRec ommend 3rd toe amputation [id number] [facility] [address] [place] [address] 12/13/2023 11:37:28 12/13/2023 14:44:30 Fissure in skin 28930545 R23.4 Right foot amp site 2ndDebride dOffloadin gBetadine wet-to-dry dressingCo ntinue custom accommodat benito insertsFol low-up 1 week Open wound of toe of right foot 6965942163 0770764 S91.104A 3rd toe rightOfflo ading at all timesWound care dailyBetad ine wet-to-dry dressingsF ollow-up 1 week [id number] [facility] [address] [place] [address] 12/27/2023 11:11:01 12/28/2023 14:40:22 Fissure in skin 04316667 R23.4 Right foot amp site 2ndDebride dOffloadin grecommend scar revisionBe tadine wet-to-dry dressingCo ntinue custom accommodat benito insertsFol low-up 2 wk Open wound of toe of right foot 7691021165 6811479 S91.104D 3rd toe rightOfflo ading at all timesrecom mend toe amputation Wound care dailyBetad ine wet-to-dry dressingsF ollow-up 2 wk Cellulitis of right foot 1669334212 8546093 L03.115 3rd toe [id number] Sekou Keith DPM [facility] [address] [place] [address] 01/10/2024 11:39:46 01/10/2024 16:07:31 Fissure in skin 21375103 R23.4 healedcont offloading cont pumas stone to arealotion callus with ureacont Supportive shoe gear Open wound of toe of right foot 9924894377 5883568 S91.104D 3rd toe rightOfflo ading at all timesrecom mend toe amputation Wound care dailyBetad ine wet-to-dry dressingsF ollow-up 2 wk [id number] Sekou Keith DPM [facility] [address] [place] [address] 01/31/2024 11:58:12 01/31/2024 14:20:16 Open wound of toe of right foot 0374617415 9180969 S91.104D 3rd toe rightOfflo ading at all timesrecom mend toe amputation Wound care dailyBetad ine wet-to-dry dressingsF ollow-up 2 wk [id number] Sekou Keith DPM [facility] [address] [place] [address] 02/14/2024 11:53:40 02/14/2024 13:48:17 Open wound of toe of right foot 3602463532 5489062 S91.104D 3rd toe right- healedOffl oading at all timesrecom mend toe amputation Wound care dailyBetad ine wet-to-dry dressingsF ollow-up as neededreco mmend routine foot care visit in 3-4months [id number] MD [facility] [address] [facility] [address] [place] [address] 02/27/2024 15:26:36 02/27/2024 16:35:52 Screening - NAD 200258879 Z13.9 C-scope: Get this at age 43 years Get yearly flu shot he has declined this 07/26/2022 UTD on tdap in 12/04Get COVID 19 vaccine done follow CDC guidelines 06/03/2020 : Handicap parking filled out 020: Handicap parking form again filled out as he did not get the plackardTh e form was filled an handed to him personally RTC in 3 monthsDo labsER if worseHe did verbalize his understand ing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
--- OUTSIDE RECORDS SUMMARY | 2025-02-15 16:27 | XMS_ITS ---
Author Name Auto Generated, Auto Generated Organization [facility] Address [address] [place] [address] Phone [phone] Functional Status No Results Mental Status No Results Allergies and Intolerances No Known Allergies Problems Active Concerns * Moderate recurrent major depression* Code: [id number] * Start Date: MonApr 25 08:00:00 EDT 2016 * End Date: * Text: * FOREST (generalized anxiety disorder)* Code: [id number] * Start Date: MonApr 25 08:00:00 EDT 2016 * End Date: * Text: * Insomnia* Code: [id number] * Start Date: MonApr 25 08:00:00 EDT 2016 * End Date: * Text: * Cannabis abuse* Code: [id number] * Start Date: MonApr 25 08:00:00 EDT 2016 * End Date: * Text: * Nicotine dependence* Code: [id number] * Start Date: MonApr 25 08:00:00 EDT 2017 * End Date: * Text: Reason for Referral Past Medical History
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
--- OUTSIDE RECORDS SUMMARY | 2025-02-15 16:27 | XMS_ITS ---
Author Name Auto Generated, Auto Generated Organization [facility] Address [address] [place] [address] Phone [phone] Functional Status Mental Status Allergies and Intolerances Problems Reason for Referral Past Medical History
== END 2025-02-15 11:56 | disposition home or self-care (01) ==
PROVIDERS: Emergency Provider Emergency Medicine; PCP Internal Medicine
DX: S91.114A Laceration without foreign body of right lesser toe(s) without damage to nail, initial encounter (principal); V89.2XXS Person injured in unspecified motor-vehicle accident, traffic, sequela
CPT/HCPCS: 99283; A9270

== ENCOUNTER 2025-02-28 09:24 | Outpatient (CLI) | payer MEDICARE, MEDICAID, SELFPAY ==
--- NOTE | 2025-02-28 | ECG_ITS ---
Test Date: 2025-02-28 10:23:02 Measurements Intervals [place] Rate: 53 P: -2 FL: 115 QRS: 26 QRSD: 79 T: 48 QT: 435 QTc: 410 Interpretive Statements SINUS BRADYCARDIA WITH SHORT FL INTERVAL No previous ECG available for comparison Electronically Signed On 02-28-2025 15:10:15 CDT by Lexis Morris M.D.
--- NOTE | ~2025-02-28 | XR_ITS ---
Clinical Indication: Presurgical evaluation PA and lateral views of the chest: Comparison: None Findings: The lungs are clear, without evidence of focal consolidation or pleural effusion. Cardiome diastinal silhouette is within normal limits. There is multilevel loss of height at the lower thoraci c spine, involving T9, T10, T11, and T12. Lumbar spinal fixation hardware is partially imaged. Impression: Clear lungs. Reviewed, dictated and finalized at location M. Impression: Clear lungs.
--- OUTSIDE RECORDS SUMMARY | 2025-02-28 09:37 | XMS_ITS ---
Author Name Auto Generated, Auto Generated Organization [facility] Address [address] [place] [address] Phone [phone] Functional Status No Results Mental Status No Results Allergies and Intolerances No Known Allergies Problems Active Concerns * Moderate recurrent major depression* Code: [id number] * Start Date: MonApr 25 08:00:00 EDT 2016 * End Date: * Text: * FOREST (generalized anxiety disorder)* Code: [id number] * Start Date: MonApr 25 08:00:00 EDT 2016 * End Date: * Text: * Insomnia* Code: 160294697 * Start Date: MonApr 25 08:00:00 EDT 2016 * End Date: * Text: * Cannabis abuse* Code: 67984180 * Start Date: MonApr 25 08:00:00 EDT 2016 * End Date: * Text: * Nicotine dependence* Code: 59077641 * Start Date: MonApr 25 08:00:00 EDT 2017 * End Date: * Text: Reason for Referral Past Medical History
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
[2025-02-28 10:48] LABS: Basophils Absolute Auto 0.1 K/mm3 (0.0-0.1); Basophils Percent Auto 0.9 % (0.2-1.2); Eosinophils Absolute Auto 0.2 K/mm3 (0-0.3); Eosinophils Percent Auto 2.6 % (0-4.4); Hematocrit 43.3 % (42.0-52.0); Immature Granulocyte Absolute 0.03 K/mm3 (0.00-0.031); Immature Granulocyte Percent A 0.5 % (0-0.5); Lymphocytes Absolute Auto 1.81 K/mm3 (0.9-3.2); Lymphocytes Percent Auto 27.6 % (18.3-44.2); Mean Corpuscular HGB Conc 32.3 g/dl (32-36); Mean Corpuscular Hemoglobin 31.4 pg (26-34); Mean Corpuscular Volume 97.1 fl (80-100); Mean Platelet Volume 10.6 fl (7.4-10.4); Monocytes Absolute Auto 0.5 K/mm3 (0.1-0.6); Monocytes Percent Auto 8.1 % (2.6-8.5); Neutrophils Percent Auto 60.3 % (45.5-73.1); Platelet Count Result 258 k/mm3 (150-375); Red Blood Count 4.46 M/mm3 (4.6-6.20); Red Cell Distribution Width 13.9 % (11.5-14.5); White Blood Count 6.6 K/mm3 (4.5-10.0)
[2025-02-28 11:02] LABS: Alanine Aminotransferase 32 U/L (6-50); Albumin Level 4.1 g/dL (3.5-5.1); Alkaline Phosphatase 85 U/L (38-126); Anion Gap 6 mmol/L (4-12); Aspartate Amino Transferase 33 U/L (17-59); Bilirubin,Total 0.3 mg/dL (0.2-1.3); Blood Urea Nitrogen 16 mg/dL (9-20); Calcium 9.2 mg/dL (8.4-10.2); Carbon Dioxide 29 mmol/L (22-30); Chloride 107 mmol/L (98-107); Estimated Glomerular Filt Rate > 60; Glucose 104 mg/dL (65-110); Potassium 4.5 mmol/L (3.4-5.0); Sodium 142 mmol/L (137-145)
== END 2025-02-28 09:25 | disposition home or self-care (01) ==
PROVIDERS: PCP Internal Medicine; Visit Provider Podiatrist Foot & Ankle Surgery
DX: Z01.818 Encounter for other preprocedural examination (principal); I45.6 Pre-excitation syndrome
CPT/HCPCS: 36415; 71046; 80053; 85025; 93005